=== PATIENT | female | born 2000 | race Caucasian/White ===

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

== ENCOUNTER 2018-01-09 19:52 | Emergency (ER) | payer MEDICAID ==
[~2018-01-09] VITALS: Ht 157.5 cm; Wt 47.2 kg
[2018-01-09 20:31] VITALS: Ht 157.5 cm; Wt 47.2 kg
[2018-01-09 22:46] VITALS: BP 115/70
== END 2018-01-09 22:46 | disposition home or self-care (01) ==
LOC: ED 19:52
DX: L25.9 Unspecified contact dermatitis, unspecified cause (principal)
CPT/HCPCS: J1200; J7512

== ENCOUNTER 2018-08-22 14:16 | Emergency (ER) | payer OTHER ==
[~2018-08-22] VITALS: Ht 157.5 cm; Wt 49.0 kg
[2018-08-22 14:32] VITALS: BP 137/88; Ht 157.5 cm; Wt 49.0 kg
== END 2018-08-22 16:55 | disposition left against medical advice (07) ==
LOC: ED 14:16
DX: Z53.21 Procedure and treatment not carried out due to patient leaving prior to being seen by health care provider (principal)